=== PATIENT | male | born 1965 | race Caucasian/White ===

== ENCOUNTER 2018-02-06 02:22 | Inpatient (IN) | payer MEDICAID ==
[~2018-02-06] VITALS: Ht 190.5 cm; Wt 90.7 kg
--- NOTE | 2018-02-06 02:27 | NUR ---
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 PT RECEIVED A BREATHING TREATMENT WITH 5MG ALBUTEROL IN FIELD EXPLORATION ENGINEER. BLOOD SUGAR IN FIELD 154. PT NOTED TO BE IN MILD RESPIRATORY DISTRESS, EXPIRATORY WHEEZING NOTED. PT'S SKIN IS HOT TO TOUCH AND PT NOTED TO BE PALE AND DIAPHORETIC. PT IS AAOX4. 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 PT PLACED ON CARDAIC MONITOR AND POX. PT SAFETY AND COMFORT MEASURES IN PLACE. PER MD''S ORDERS, PT PLACED ON NC 3L/M. MD BEDSIDE FOR EVAL.
--- NOTE | 2018-02-06 02:30 | NUR ---
NEUTROPENIC PRECAUTIONS IN PLACE. PT WEARING SURGICAL MASK CUTTER GRINDER.
[2018-02-06] MEDS ORDERED: ACETAMINOPHEN ES 500 MG TABLET ONE (02:50)
[2018-02-06 02:58] LABS: APPEARANCE,URINE CLEAR (CLEAR); BILIRUBIN,URINE NEGATIVE (NEGATIVE); BLOOD, URINE TRACE Ery/uL (NEGATIVE); COLOR,URINE YELLOW (YELLOW); KETONES,URINE NEGATIVE (NEGATIVE); LEUKOCYTE ESTERASE ,URINE NEGATIVE (NEGATIVE); NITRITE, URINE NEGATIVE (NEGATIVE); PROTEIN,URINE 1+ mg/dl (NEGATIVE); UGLUCOSE NEGATIVE (NEGATIVE)
[2018-02-06] MEDS ORDERED: IV NS 0.9% 500 ML BAG IV ONE (03:00)
[2018-02-06] MEDS ORDERED: ACETAMINOPHEN ES 500 MG TABLET PO ONE (03:00)
[2018-02-06 03:08] LABS: INR 1.12 (0.87-1.13)
[2018-02-06 03:13] LABS: ALANINE AMINOTRANSFERASE 39 U/L (12-78); ALBUMIN 2.5 g/dL (3.4-5.0); ALKALINE PHOSPHATASE 30 U/L (46-116); ASPARTATE AMINOTRANSFERASE 21 U/L (15-37); BILIRUBIN,DIRECT 0.7 mg/dL (0.0-0.2); BILIRUBIN,TOTAL 2.4 mg/dL (0.2-1.0); CALCIUM, SERUM 7.6 mg/dL (8.5-10.1); CARBON DIOXIDE 23 mmol/L (21-32); CHLORIDE 98 mmol/L (98-107); CREATININE 1.3 mg/dL (0.6-1.3); GLUCOSE 122 mg/dL (74-106); POTASSIUM 3.9 mmol/L (3.5-5.1); SODIUM SERUM 132 mmol/L (136-145); TOTAL PROTEIN, SERUM 6.6 g/dL (6.4-8.2); UREA NITROGEN, BLOOD 26 mg/dL (7-18)
[2018-02-06 03:14] LABS: TROPONIN I < 0.017 ng/mL (0.00-0.056)
--- NOTE | 2018-02-06 03:30 | NUR ---
PT TO VQ SCAN.
[2018-02-06 03:31] LABS: HEMATOCRIT 19 % (39-51); HEMOGLOBIN 6.5 g/dL (13.5-17.5); LYMPHOCYTES # (AUTO) 0.1 /CMM (0.8-4.8); LYMPHOCYTES % (AUTO) 63.4 % (20.0-44.0); MEAN CORPUSCULAR HGB CONC 34 g/dl (31.0-36.0); MEAN CORPUSCULAR VOLUME 93 fL (80-96); MONOCYTES # (AUTO) 0.1 /CMM (0.1-1.30); MONOCYTES % (AUTO) 27.9 % (2.0-12.0); NEUTROPHILS % (AUTO) 8.7 % (43.0-81.0); RED BLOOD CELL COUNT(AUTO) 2.05 MIL/uL (4.5-6.0); WHITE BLOOD COUNT (AUTO) 0.2 K/uL (4.3-11.0)
[2018-02-06 03:32] LABS: PLATELET COUNT (AUTO) 21 /CMM (150-450)
[2018-02-06 03:35] LABS: RBC,URINE 0-2 /HPF (0-2)
[2018-02-06 03:36] LABS: BACTERIA,URINE None seen /HPF (None Seen); SQUAMOUS EPITHELIAL CELL,UR Rare /HPF (None Seen); WBC,URINE NONE SEEN /HPF (0-3)
--- NOTE | 2018-02-06 04:15 | NUR ---
PT BACK FROM VQ SCAN
--- NOTE | 2018-02-06 04:22 | NUR ---
NM: LUNG V/Q WAS COMPLETED. TECH:RB.
--- NOTE | 2018-02-06 04:54 | NUR ---
BLOOD TRANSFUSSION INITIATED. BLOOD PRODUCTS AND BLOOD TRANSFUSSION VERIFIED BY ALLEN HOSKINS.
[2018-02-06] MEDS ORDERED: IBUPROFEN 400 MG TABLET ONE (04:58)
[2018-02-06] MEDS ORDERED: IBUPROFEN 800 MG TABLET PO PRN (05:00)
--- NOTE | 2018-02-06 05:01 | NUR ---
PT MEDICATED PER MD'S ORDERS
[2018-02-06] MEDS ORDERED: PIPERACILLIN /TAZOBACTAM 3.375 G in IV D5W 50 ML IV STA (05:05)
[2018-02-06] MEDS ORDERED: VANCOMYCIN 1 GM in IV NS 0.9% 250 ML IV STA (05:05)
[2018-02-06] MEDS ORDERED: PIPERACILLIN /TAZOBACTAM 3.375 G VIAL IV ONE ×2 (05:59→06:05)
[2018-02-06] MEDS ORDERED: VANCOMYCIN 1 GM VIAL ONE (06:00)
--- NOTE | 2018-02-06 06:05 | NUR ---
PT MEDICATED PER MD'S ORDERS
--- NOTE | 2018-02-06 06:06 | NUR ---
PT REPORT WAS GIVEN TO HUDSON VILLA ROOM WAS CHANGED TO ROOM 314-2 PER 3RD FLOOR
[2018-02-06] MEDS ORDERED: IV NS 0.9% 1,000 ML IV PRN (06:20)
[2018-02-06] MEDS ORDERED: ZOLPIDEM TARTRATE 5 MG TABLET PO PRN (06:30)
[2018-02-06] MEDS ORDERED: Z GUARD REMEDY 2 OZ OINT TP PRN (06:30)
[2018-02-06] MEDS ORDERED: HYDROCODONE/APAP 5/325MG 1 EACH TABLET PO PRN (06:30)
[2018-02-06] MEDS ORDERED: MAGNESIUM HYDROXIDE 30 ML UDC PO PRN (06:30)
[2018-02-06] MEDS ORDERED: MAG HYDROX/AL HYDROX/SIMETH 30 ML UDC PO PRN (06:30)
[2018-02-06] MEDS ORDERED: FLUCONAZOLE IN NS 100 MG in PREMIX 1 EA IV SCH ×2 (06:30)
[2018-02-06] MEDS ORDERED: ONDANSETRON HCL/PF 4 MG/2 ML VIAL IVP PRN (06:30)
[2018-02-06] MEDS ORDERED: HYDROCODONE/APAP 10/325MG 1 EA TABLET PO PRN (06:30)
[2018-02-06] MEDS ORDERED: VANCOMYCIN 1 GM in IV NS 0.9% 250 ML IV ONE (07:00)
[2018-02-06] MEDS ORDERED: FEE PK DOSING 1 MIN EA MC ONE (07:03)
[2018-02-06] MEDS: IPRATROPIUM NEB FS 0.5 MG/2.5 ML AMPUL.NEB NEB SCH ×3 (07:29→15:45)
--- NOTE | 2018-02-06 07:58 | NUR ---
REPORT GIVEN TO DANI VILLA FOR CONTINUITY OF CARE IN [facility]
[2018-02-06 08:00] VITALS: BP 94/52
[2018-02-06] MEDS ORDERED: RITU10VI IV (08:00)
[2018-02-06] MEDS ORDERED: [UNRECOGNIZED DRUG - CODE] IV (08:00)
[2018-02-06] MEDS ORDERED: ACYC400T PO (08:00)
--- NOTE | 2018-02-06 08:00 | NUR ---
[facility] RN NOTES RECEIVED PT IN ROOM 110 FROM ER, REPORT WAS GIVEN BY BEBETO HANSON RN, TRANSPORTED VIA GURNEY, PT WEARING A FACE MASK DUE TO LOW WBC=0.2, PT PLACED IN REVERSE ISOLATION(NEUTROPENIC PRECAUTION), PT IS ALERT AND ORIENTEDX4, AFEBRILE WITH TEMP OF 98.1, NO C/O PAIN, NO BLEEDING NOTED ON IV LINE, PLACED ON CARDIAC MONITORING WITH SINUS TACH, NV=547, LEFT AC 18G IV LINE NOTED INTACT AND PATENT, COMPLETE BODY ASSESSMENT DONE, BED IN LOWEST POSITION AND LOCKED AT ALL TIMES, CALL LIGHT WITHIN REACH, NEEDS ANTICIPATED, INFORMED DR. MARK ANTHONY WHITE RE: PT'S ADMISSION IN THE UNIT, AWAITING FOR ORDERS.
[2018-02-06 12:00] VITALS: BP 100/49
[2018-02-06] MEDS: ACETAMINOPHEN 325 MG TABLET PO PRN ×3 (13:00→21:20)
[2018-02-06] MEDS: MEROPENEM 1 G in IV NS 0.9% 100 ML IV SCH ×2 (13:38→21:12)
[2018-02-06] MEDS ORDERED: VANCOMYCIN 1 GM in IV D5W 250 ML IV SCH (14:00)
[2018-02-06] MEDS: ALBUTEROL FS 2.5 MG/3 ML VIAL.NEB NEB PRN ×2 (14:13→15:45)
[2018-02-06] MEDS ORDERED: FILGRASTIM (480 MCG) 480 MCG/1.6 ML VIAL SQ SCH (15:00)
--- NOTE | 2018-02-06 15:13 | NUR ---
[facility] RN NOTES NOTED PT. HAVING CHILLS AND DIAPHORESIS PROFUSELY, BODY TEMP OF 100.4, PT C/O SOB, O2 SAT AT 92% AND CLAIMS THAT HE IS HAVING DIFFICULTY BREATHING, CALLED RT AND RT ADMINISTERED BREATHING TREATMENT, CALLED AND PAGE DR. TORRES REGARDING PT'S TEMP, MADE HIM AWARE THAT TYLENOL WAS JUST GIVEN 1300 FOR MILD PAIN, PER MD OK TO GIVE ANOTHER DOSE OF TYLENOL 650 MG PO NOW FOR TEMP
[2018-02-06] MEDS ORDERED: DOCU100C36 PO (15:44)
[2018-02-06] MEDS ORDERED: SENN-167 PO (15:44)
[2018-02-06] MEDS ORDERED: POLY17PO4 PO (15:46)
[2018-02-06] MEDS: FLUCONAZOLE IN NS 100 MG in PREMIX 1 EA IV SCH ×2 (15:47)
[2018-02-06 16:00] VITALS: BP 146/71
--- NOTE | 2018-02-06 16:30 | NUR ---
[facility] RN NOTES OFFERED PT COOLING MEASURES, OFFERED X3 AND EXPLAINED BENEFITS, RESIDENT STRONGLY REFUSED. RESPECTED RESIDENT RIGHTS, WILL KEEP MONITORING.
[2018-02-06] MEDS: LACTOBACILLUS RHAMNOSUS GG 1 EACH CAP.SPRINK PO SCH (16:49)
[2018-02-06] MEDS: SENNOSIDES 8.6 MG TABLET PO SCH (16:49)
[2018-02-06] MEDS: DOCUSATE SODIUM 100 MG CAPSULE PO SCH (16:49)
[2018-02-06] MEDS: VANCOMYCIN 1.25 GM in IV D5W 500 ML IV SCH (16:51)
[2018-02-06] MEDS: POLYETHYLENE GLYCOL 3350 17 GM POWD.PACK PO SCH (16:52)
[2018-02-06] MEDS ORDERED: TBO-FILGRASTIM 480 MCG/0.8 ML ML SQ SCH (17:00)
--- NOTE | 2018-02-06 17:39 | NUR ---
[facility] RN NOTES RECEIVED CRITICALVALUE FOR PROCALCITONIN 5.8, PAGED DR. TORRES AND AWAITING FOR MDS REPLY.
--- NOTE | 2018-02-06 18:28 | NUR ---
[facility] RN NOTE: CALLED AND INFORMED DR. TORRES RE: THE PATIENT'S REQUEST TO DC HIS NORCO. HE VERBALIZED, "I DO NOT LIKE NORCO. I CAN TAKE TYLENOL." WITH ORDER, NOTED AND CARRIED OUT.
--- NOTE | 2018-02-06 19:30 | NUR ---
[facility] RN NOTES PT IN BED, RESTING COMFORTABLY, NO C/O PAIN AND SOB AT THIS TIME, TEMP OF 99.1, STILL ON 3L/MIN O2 VIA NC, O2 SAT OF 99%, NO DIAPHORESIS NOTED, NO SIGNS OF BLEEDING NOTED, STILL WAITING ORDER FROM DR. TORRES REGARDING PROCALCITONIN OF 5.8, WILL ENDORSE TO MAJOR GIFTS DIRECTOR NURSE
--- NOTE | 2018-02-06 19:35 | NUR ---
[facility] RN NOTES PT IN BED, RESTING COMFORTABLY, NO C/O PAIN AND SOB AT THIS TIME, TEMP OF 99.1, STILL ON 3L/MIN O2 VIA NC, O2 SAT OF 99%, NO DIAPHORESIS NOTED, NO SIGNS OF BLEEDING NOTED, STILL WAITING ORDER FROM DR. TORRES REGARDING PROCALCITONIN OF 5.8, WILL ENDORSE TO SUPERVISORY CLERK NURSE ADDENDUM OFFERED COOLING MEASURES, EXPLAINED BENEFITS, PT REFUSED
--- NOTE | 2018-02-06 20:00 | NUR ---
RN INITIAL NOTES RECEIVED PT IN BED, RESTING COMFORTABLY, NO C/O PAIN AND SOB AT THIS TIME, TEMP OF 99.0, PT ON 3L/MIN O2 VIA NC, O2 SAT OF 99%, NO DIAPHORESIS NOTED, NO SIGNS OF BLEEDING NOTED, ALL SAFETY PRECAUTIONS TAKEN. WILL ENDORSE TO AM SHIFT NURSE
[2018-02-06] MEDS: ACYCLOVIR 200 MG CAPSULE PO SCH (21:13)
[2018-02-07] VITALS (10 sets, daily range): BP systolic 97–124; BP diastolic 53–70
[2018-02-07] MEDS: IPRATROPIUM NEB FS 0.5 MG/2.5 ML AMPUL.NEB NEB SCH ×4 (00:58→20:20)
[2018-02-07] MEDS: VANCOMYCIN 1.25 GM in IV D5W 500 ML IV SCH (05:01)
[2018-02-07] MEDS: MEROPENEM 1 G in IV NS 0.9% 100 ML IV SCH ×3 (05:04→20:44)
[2018-02-07] MEDS: ACETAMINOPHEN 325 MG TABLET PO PRN ×2 (05:11→12:26)
[2018-02-07 06:44] LABS: EOSINOPHILS % (AUTO) 3.6 % (0.0-6.0); LYMPHOCYTES # (AUTO) 0.2 /CMM (0.8-4.8); LYMPHOCYTES % (AUTO) 65.7 % (20.0-44.0); MEAN CORPUSCULAR HGB CONC 36 g/dl (31.0-36.0); MEAN CORPUSCULAR VOLUME 92 fL (80-96); MONOCYTES % (AUTO) 5.2 % (2.0-12.0); NEUTROPHILS # (AUTO) 0.1 /CMM (1.8-8.9); NEUTROPHILS % (AUTO) 25.5 % (43.0-81.0); RDW COEFFICIENT OF VARIATION 21.7 (11.5-15.0)
--- NOTE | 2018-02-07 06:59 | NUR ---
RN CLOSING NOTES NO SIGNIFICANT CHANGE IN PT CONDITION OVER NIGHT.
--- NOTE | 2018-02-07 07:00 | NUR ---
RN OPENING NOTE RECEIVED PT IN BED, RESTING COMFORTABLY, NO C/O PAIN AND SOB AT THIS TIME, PATIENT IS ON MONITOR WITH SINUS RHYTHM OF 82, PT ON 3L/MIN O2 VIA NC, NO DIAPHORESIS NOTED, NO SIGNS OF BLEEDING NOTED, ALL SAFETY PRECAUTIONS TAKEN.BED LOCKED IN LOW POSITION .CALL LIGHT IN REACH.CONTINUE TO MONITOR.
[2018-02-07 07:01] LABS: THYROID STIMULATING HORMONE 2.875 uIU/mL (0.358-3.74)
[2018-02-07 07:19] LABS: CALCIUM, SERUM 7.2 mg/dL (8.5-10.1); PHOSPHORUS 3.3 mg/dL (2.5-4.9); POTASSIUM 4.7 mmol/L (3.5-5.1)
[2018-02-07 07:44] LABS: RED BLOOD CELL COUNT(AUTO) 1.75 MIL/uL (4.5-6.0)
[2018-02-07 07:47] LABS: HEMATOCRIT 16 % (39-51); HEMOGLOBIN 5.8 g/dL (13.5-17.5); PLATELET COUNT (AUTO) 19 /CMM (150-450); WHITE BLOOD COUNT (AUTO) 0.3 K/uL (4.3-11.0)
--- NOTE | 2018-02-07 08:30 | NUR ---
RN NOTES CALL MADE TO DR TORRES,MADE AWARE THAT THE LAB VALUES AND LOW H/H OF 5.8AND 16.HE REPLIED HE KNOW ABOUT IT.WILL CONTINUE TO MONITOR.
[2018-02-07] MEDS: LACTOBACILLUS RHAMNOSUS GG 1 EACH CAP.SPRINK PO SCH ×2 (08:35→18:05)
[2018-02-07] MEDS: DOCUSATE SODIUM 100 MG CAPSULE PO SCH ×2 (08:36→18:05)
[2018-02-07] MEDS: SENNOSIDES 8.6 MG TABLET PO SCH ×2 (08:36→18:04)
[2018-02-07] MEDS: POLYETHYLENE GLYCOL 3350 17 GM POWD.PACK PO SCH (08:36)
[2018-02-07] MEDS: ACYCLOVIR 200 MG CAPSULE PO SCH ×2 (08:36→20:44)
--- NOTE | 2018-02-07 09:30 | NUR ---
RN NOTES SEEN BY ,NOTIFIED ABOUT THE LOW H/H.NO BLOOD TRANSFUSION NOW.CONTINUE TO MONITOR.
--- NOTE | 2018-02-07 15:00 | NUR ---
RN NOTES PATIENT COMPLAINTS OF PAIN AT ANAL AREA AFTER BOWEL MOVEMENT .LEFT MESSAGE TO DR TORRES FOR CREAM TO APPLY HEMORRHOID SITE.HE SAID HE WILL DO IT.
[2018-02-07] MEDS: FLUCONAZOLE IN NS 100 MG in PREMIX 1 EA IV SCH ×2 (15:30)
[2018-02-07] MEDS ORDERED: diphenhydrAMINE HCL 50 MG/ML VIAL IV ONE (16:00)
[2018-02-07] MEDS ORDERED: HYDROCORTISONE CR 30 GM TUBE RC PRN (16:00)
[2018-02-07] MEDS ORDERED: ACETAMINOPHEN 325 MG TABLET PO ONE (16:00)
[2018-02-07] MEDS ORDERED: VANCOMYCIN 1.25 GM in IV D5W 500 ML IV SCH (17:00)
--- NOTE | 2018-02-07 18:00 | NUR ---
RN NOTES GOT AN ORDER FOR BLOOD TRANSFUSION.PATIENT MADE AWARE.
--- NOTE | 2018-02-07 18:30 | NUR ---
RN NOTES SEEN BY DOCTOR TUNG ONCOLOGY,AWARE ABOUT POSITIVE BLOOD CULTURE OF GRAM NEGATIVE RODS,SHE SAID MEROPENEM WILL COVER IT,WILL WAIT FOR FIANL RESULT FOR CULTURE AND SENSITIVITY.
--- NOTE | 2018-02-07 19:10 | NUR ---
RN CLOSING NOTE RECEIVED PT IN BED, RESTING COMFORTABLY, NO C/O PAIN AND SOB AT THIS TIME, PATIENT IS ON MONITOR WITH SINUS RHYTHM OF 86 , PT ON 3L/MIN O2 VIA NC, NO DIAPHORESIS NOTED, NO SIGNS OF BLEEDING NOTED,BLOOD TRANSFUSION GOING ON FIRST BAG OF PRBC.NO REACTIONS NOTED.VITAL SIGNS STABLE. ALL SAFETY PRECAUTIONS TAKEN.BED LOCKED IN LOW POSITION .CALL LIGHT IN REACH.WILL ENDORSE TO PM NURSE FOR MINDY.
--- NOTE | 2018-02-07 23:09 | NUR ---
ASSISTANT BUSINESS MANAGER; BEDSIDE REPORT GIVEN TO KELLI/RN, BLOOD TRANSFUSION ONGOING, V/S STABLE. PT IS AAOX 4. TOLERATING TRANSFUSION. NO DISTRESS.
[2018-02-08] VITALS: BP 111/63
[2018-02-08] MEDS: ACETAMINOPHEN 325 MG TABLET PO PRN (00:54)
[2018-02-08] MEDS: IPRATROPIUM NEB FS 0.5 MG/2.5 ML AMPUL.NEB NEB SCH ×4 (01:30→19:30)
[2018-02-08 04:23] VITALS: BP 123/65
[2018-02-08] MEDS: MEROPENEM 1 G in IV NS 0.9% 100 ML IV SCH ×2 (04:35→12:44)
--- NOTE | 2018-02-08 06:17 | NUR ---
assumed care @2315, pt alert,oriented,c/o pain from the hemorrhoids,completed 2 units of prbc overnight without any adverse effects,vss,afebrile, continue with antibiotics.neutropenic isolation observed.
[2018-02-08 06:43] LABS: CALCIUM, SERUM 7.6 mg/dL (8.5-10.1); POTASSIUM 3.8 mmol/L (3.5-5.1)
--- NOTE | 2018-02-08 07:35 | NUR ---
RN OPENING NOTES RECEIVED PATIENT IN BED RESTING, A/OX4. NO ACUTE DISTRESS, NO SOB, DENIED PAIN OR DISCOMFORT AT THIS TIME. IV SITE INTACT AND PATENT. KEPT PATIENT SAFE AND COMFORTABLE. BED IN LOW/LOCKED POSITION, SIDERAILS UPX2, CALL LIGHT IN REACH. WILL CONTINUE TO MONITOR ACCORDINGLY.
[2018-02-08 08:00] VITALS: BP 111/62
[2018-02-08] MEDS: POLYETHYLENE GLYCOL 3350 17 GM POWD.PACK PO SCH (09:16)
[2018-02-08] MEDS: LACTOBACILLUS RHAMNOSUS GG 1 EACH CAP.SPRINK PO SCH ×2 (09:17→16:48)
[2018-02-08] MEDS: SENNOSIDES 8.6 MG TABLET PO SCH ×2 (09:17→16:49)
[2018-02-08] MEDS: ACYCLOVIR 200 MG CAPSULE PO SCH ×2 (09:17→21:26)
[2018-02-08] MEDS: DOCUSATE SODIUM 100 MG CAPSULE PO SCH ×2 (09:17→16:49)
[2018-02-08 14:27] LABS: BILIRUBIN,DIRECT 0.5 mg/dL (0.0-0.2); BILIRUBIN,TOTAL 1.6 mg/dL (0.2-1.0); TOTAL PROTEIN, SERUM 5.9 g/dL (6.4-8.2)
[2018-02-08 15:24] LABS: HEMATOCRIT 27 % (39-51); HEMOGLOBIN 9.3 g/dL (13.5-17.5); LYMPHOCYTES # (AUTO) 0.5 /CMM (0.8-4.8); LYMPHOCYTES % (AUTO) 83.5 % (20.0-44.0); MEAN CORPUSCULAR HGB CONC 35 g/dl (31.0-36.0); MEAN CORPUSCULAR VOLUME 90 fL (80-96); MONOCYTES % (AUTO) 8.1 % (2.0-12.0); NEUTROPHILS % (AUTO) 8.4 % (43.0-81.0); RDW COEFFICIENT OF VARIATION 20.6 (11.5-15.0); RED BLOOD CELL COUNT(AUTO) 2.97 MIL/uL (4.5-6.0)
--- NOTE | 2018-02-08 15:53 | NUR ---
RN NOTES NOTIFIED PATRICE PENALOZA NP OF PATIENT'S WBC=0.6 AND PLATELET=17. NO NEW ORDERS NOTED.
[2018-02-08 15:54] LABS: PLATELET COUNT (AUTO) 17 /CMM (150-450); WHITE BLOOD COUNT (AUTO) 0.6 K/uL (4.3-11.0)
[2018-02-08 16:00] VITALS: BP 106/69
[2018-02-08 16:00] LABS: LYMPHOCYTES % (MANUAL) 80 % (16-48); MONOCYTES % (MANUAL) 16 % (0-11.0); NEUTROPHILS % (MANUAL) 4 (42-76)
[2018-02-08] MEDS: IV NS 0.9% 1,000 ML IV PRN (16:47)
[2018-02-08] MEDS: FLUCONAZOLE IN NS 100 MG in PREMIX 1 EA IV SCH ×2 (16:48)
--- NOTE | 2018-02-08 18:00 | NUR ---
RN NOTES PATIENT IS SCHEDULED FOR CT CHEST AND ABDOMEN/PELVIS WITH CONTRAST AT 2100 PER RADIOLOGIST. CONSENT SIGNED.
--- NOTE | 2018-02-08 19:20 | NUR ---
RN CLOSING NOTES PATIENT IN STABLE CONDITION. ALL NEEDS ATTENDED AND PROVIDED. KEPT PATIENT SAFE AND COMFORTABLE. BED IN LOW/LOCKED POSITION, SIDERAILS UPX2, CALL LIGHT IN REACH. ENDORSED TO NIGHT RN FOR MINDY.
[2018-02-08 20:00] VITALS: BP 122/77
[2018-02-08] MEDS ORDERED: IOHEXOL-300 100 ML VIAL IV ONE (20:54)
--- NOTE | 2018-02-08 20:55 | NUR ---
MS-1/ARPIT PT OFF THE FLOOR TO CT SCAN.
--- NOTE | 2018-02-08 21:15 | NUR ---
MS-1/TUB WASH OPERATOR PT BACK FROM CT. WILL CONTINUE TO MONITOR.
[2018-02-08] MEDS: CEFTRIAXONE 2 G in IV NS 0.9% 100 ML IV SCH (21:36)
[2018-02-09] MEDS: IPRATROPIUM NEB FS 0.5 MG/2.5 ML AMPUL.NEB NEB SCH ×4 (01:30→19:30)
[2018-02-09 04:00] VITALS: BP 119/76
[2018-02-09 06:33] LABS: CALCIUM, SERUM 7.3 mg/dL (8.5-10.1); CREATININE 0.8 mg/dL (0.6-1.3); POTASSIUM 3.9 mmol/L (3.5-5.1)
[2018-02-09 06:35] LABS: HEMATOCRIT 22 % (39-51); HEMOGLOBIN 7.8 g/dL (13.5-17.5); LYMPHOCYTES # (AUTO) 0.3 /CMM (0.8-4.8); LYMPHOCYTES % (AUTO) 78.9 % (20.0-44.0); MEAN CORPUSCULAR HGB CONC 35 g/dl (31.0-36.0); MEAN CORPUSCULAR VOLUME 90 fL (80-96); MONOCYTES # (AUTO) 0.1 /CMM (0.1-1.30); MONOCYTES % (AUTO) 12.8 % (2.0-12.0); NEUTROPHILS % (AUTO) 8.3 % (43.0-81.0); RDW COEFFICIENT OF VARIATION 20.3 (11.5-15.0); RED BLOOD CELL COUNT(AUTO) 2.49 MIL/uL (4.5-6.0)
[2018-02-09 07:35] LABS: PLATELET COUNT (AUTO) 15 /CMM (150-450); WHITE BLOOD COUNT (AUTO) 0.4 K/uL (4.3-11.0)
--- NOTE | 2018-02-09 07:38 | NUR ---
RN OPENING NOTES RECEIVED PATIENT IN BED RESTING,EASILY AROUSABLE DURING CARE A/OX4. NO ACUTE DISTRESS, NO SOB, DENIED PAIN OR DISCOMFORT AT THIS TIME. IV SITE INTACT AND PATENT, NO REDNESS OR INFILTRATION NOTED. KEPT PATIENT CLEAN, SAFE AND COMFORTABLE. BED IN LOW/LOCKED POSITION, SIDERAILS UPX2, CALL LIGHT IN REACH. WILL CONTINUE TO MONITOR .
[2018-02-09 08:00] VITALS: BP 120/66
[2018-02-09] MEDS: SENNOSIDES 8.6 MG TABLET PO SCH ×2 (08:32→16:45)
[2018-02-09] MEDS: DOCUSATE SODIUM 100 MG CAPSULE PO SCH ×2 (08:33→16:44)
[2018-02-09] MEDS: POLYETHYLENE GLYCOL 3350 17 GM POWD.PACK PO SCH (08:33)
[2018-02-09] MEDS: ACYCLOVIR 200 MG CAPSULE PO SCH ×2 (08:33→21:52)
[2018-02-09] MEDS: LACTOBACILLUS RHAMNOSUS GG 1 EACH CAP.SPRINK PO SCH ×2 (08:33→16:45)
[2018-02-09] MEDS: IV NS 0.9% 1,000 ML IV PRN (11:22)
[2018-02-09] MEDS ORDERED: PHENYLEPHRINE/SHK LV/MO/PET,WH 30 GM TUBE RC PRN (12:30)
[2018-02-09] MEDS: FLUCONAZOLE (100 MG) 100 MG TABLET PO SCH (12:58)
--- NOTE | 2018-02-09 13:00 | NUR ---
RN NOTES NOTED PT WITH ORDERS FOR STOOL FOR OB, PT WITH BM FRAMING CONSULTANT PENALOZA IN RM PER FRAMING CONSULTANT NO NEED TO COLLECT STOOL, NO BLOOD IN STOOL WILL CONTINUE TO MONITOR
[2018-02-09 16:00] VITALS: BP 129/71
[2018-02-09 18:27] LABS: HEMOGLOBIN 8.7 g/dL (13.5-17.5)
--- NOTE | 2018-02-09 19:36 | NUR ---
SLEEVE MACHINE TENDER NOTES PATIENT IN BED RESTING COMFORTABLY, A/OX4. NO ACUTE DISTRESS, NO SOB, DENIES ANY PAIN OR DISCOMFORT AT THIS TIME. IV SITE INTACT AND PATENT, NO REDNESS OR INFILTRATION NOTED. KEPT PATIENT CLEAN, SAFE AND COMFORTABLE. NO ACUTE CHANGE IN CONDITION THROUGHOUT SHIFT.BED IN LOW/LOCKED POSITION, SIDERAILS UPX2, CALL LIGHT IN REACH. ENDORSED TO NEXT SHIFT FOR CONTINUITY OF CARE . Addendum: 02/09/18 at 1939 by CHOLO HAWTHORNE RN CORRECTION OF ENTRY RN CLOSING NOTES
[2018-02-09 20:00] VITALS: BP 141/73
--- NOTE | 2018-02-09 20:00 | NUR ---
RN INITIAL NOTES RECEIVED PATIENT IN BED RESTING, A/OX4. NO ACUTE DISTRESS, NO SOB, DENIED PAIN OR DISCOMFORT AT THIS TIME. IV SITE INTACT AND PATENT, NO REDNESS OR INFILTRATION NOTED. KEPT PATIENT CLEAN, SAFE AND COMFORTABLE. BED IN LOW/LOCKED POSITION, SIDE RAILS UPX2, CALL LIGHT IN REACH. WILL CONTINUE TO MONITOR .
[2018-02-09] MEDS: CEFTRIAXONE 2 G in IV NS 0.9% 100 ML IV SCH (21:52)
[2018-02-10] VITALS: BP 141/73
[2018-02-10] MEDS: IPRATROPIUM NEB FS 0.5 MG/2.5 ML AMPUL.NEB NEB SCH ×4 (01:30→19:30)
[2018-02-10 06:00] VITALS: BP 134/71
--- NOTE | 2018-02-10 06:33 | NUR ---
RN CLOSING NOTES PATIENT IN STABLE CONDITION. ALL NEEDS ATTENDED AND PROVIDED. KEPT PATIENT SAFE AND COMFORTABLE. BED IN LOW/LOCKED POSITION, SIDERAILS UPX2, CALL LIGHT IN REACH. ENDORSED TO AM RN FOR MINDY.
[2018-02-10 06:59] LABS: BASOPHILS % (AUTO) 0.2 % (0.0-2.0); EOSINOPHILS % (AUTO) 0.2 % (0.0-6.0); HEMATOCRIT 23 % (39-51); HEMOGLOBIN 8.2 g/dL (13.5-17.5); LYMPHOCYTES # (AUTO) 0.4 /CMM (0.8-4.8); LYMPHOCYTES % (AUTO) 87.6 % (20.0-44.0); MEAN CORPUSCULAR HGB CONC 35 g/dl (31.0-36.0); MEAN CORPUSCULAR VOLUME 89 fL (80-96); MONOCYTES % (AUTO) 2.1 % (2.0-12.0); NEUTROPHILS % (AUTO) 9.9 % (43.0-81.0); RDW COEFFICIENT OF VARIATION 19.8 (11.5-15.0); RED BLOOD CELL COUNT(AUTO) 2.62 MIL/uL (4.5-6.0)
[2018-02-10 07:09] LABS: CALCIUM, SERUM 7.8 mg/dL (8.5-10.1); CREATININE 0.8 mg/dL (0.6-1.3); POTASSIUM 4.2 mmol/L (3.5-5.1)
[2018-02-10 07:32] LABS: PLATELET COUNT (AUTO) 18 /CMM (150-450); WHITE BLOOD COUNT (AUTO) 0.5 K/uL (4.3-11.0)
--- NOTE | 2018-02-10 07:46 | NUR ---
PT REFUSED HHN TX AT THIS TIME. NO SOB/RESP DISTRESS NOTED. PT STATES HE WILL CALL FOR PRN TX IF NEEDED. RN INFORMED. WILL CONTINUE TO MONITOR PT.
[2018-02-10 08:35] VITALS: BP 114/69
[2018-02-10 08:59] VITALS: BP 114/69
[2018-02-10] MEDS: POLYETHYLENE GLYCOL 3350 17 GM POWD.PACK PO SCH (08:59)
[2018-02-10] MEDS: ACYCLOVIR 200 MG CAPSULE PO SCH ×2 (09:00→20:05)
[2018-02-10] MEDS: SENNOSIDES 8.6 MG TABLET PO SCH ×2 (09:00→16:30)
[2018-02-10] MEDS: LACTOBACILLUS RHAMNOSUS GG 1 EACH CAP.SPRINK PO SCH ×2 (09:01→16:30)
[2018-02-10] MEDS: FLUCONAZOLE (100 MG) 100 MG TABLET PO SCH (09:01)
[2018-02-10] MEDS: DOCUSATE SODIUM 100 MG CAPSULE PO SCH ×2 (09:01→16:30)
[2018-02-10 10:11] LABS: LYMPHOCYTES % (MANUAL) 84 % (16-48); MONOCYTES % (MANUAL) 2 % (0-11.0); NEUTROPHILS % (MANUAL) 14 (42-76)
--- NOTE | 2018-02-10 11:29 | NUR ---
RN NOTES PT REFUSED IVF AT PRESENT TIME. WILL CONTINUE TO MONITOR , MD AWARE
--- NOTE | 2018-02-10 13:28 | NUR ---
PT REFUSED HHN TX AT THIS TIME. RN AWARE. WILL CONTINUE TO MONITOR PT.
[2018-02-10 16:00] VITALS: BP_SYST 108; BP_SYST 118; BP_DIAS 53; BP_DIAS 56
--- NOTE | 2018-02-10 19:25 | NUR ---
MS RN OPENING NOTES: RECEIVED PT IN BED AND IS UP AND ABOUT AT THIS TIME. PT HAS IV ON R HAND AND IS NOT CONNECTED TO FLUIDS AT THIS TIME. PT IS A/OX4. INSTRUCTED PT TO CALL FOR ASSISTANCE PRN. CALL LIGHT WITHIN PT'S REACH. BED KEPT IN LOW, LOCKED POSITION, AND SIDE RAILS X 2UP. WILL CONTINUE TO MONITOR PT.
[2018-02-10 20:00] VITALS: BP 126/78
[2018-02-10] MEDS: CEFTRIAXONE 2 G in IV NS 0.9% 100 ML IV SCH (20:05)
--- NOTE | 2018-02-10 20:35 | NUR ---
MS RN NOTES: PT DOES NOT WANT TO BE CONNECTED TO IV FLUIDS AT THIS MOMENT. PT IS SAYING HE IS STAYING HYDRATED AND DRINKING A LOT OF WATER. PT STATES THAT HE IS DRINKING A GALLON AND A HALF OF WATER THAT IS BROUGHT IN BY VISITOR EARLIER.
[2018-02-11] MEDS: IPRATROPIUM NEB FS 0.5 MG/2.5 ML AMPUL.NEB NEB SCH ×4 (01:18→19:30)
[2018-02-11 04:00] VITALS: BP 117/70
[2018-02-11] MEDS: IV NS 0.9% 1,000 ML IV PRN (05:08)
--- NOTE | 2018-02-11 06:08 | NUR ---
MS RN CLOSING NOTES: ALL NEEDS WERE ATTENDED AND ANTICIPATED FOR. PT IS LAYING IN BED AT THIS TIME. PT IS A/OX4. PT HAS 2 IVS AND ARE BOTH PATENT AND INTACT. ONE IN THE L AC AND ONE ON THE R HAND. PT DOES NOT WANT TO BE CONNECTED TO IV FLUIDS HE SAID HE IS DRINKING A LOT OF WATER AND STAYING HYDRATED. CALL LIGHT WITHIN PT'S REACH.BED KEPT IN LOW, LOCKED POSITION, AND SIDE RAILS X 2UP. WILL ENDORSE TO AM NURSE FOR MINDY.
[2018-02-11 06:54] LABS: EOSINOPHILS % (AUTO) 1.4 % (0.0-6.0); HEMATOCRIT 25 % (39-51); HEMOGLOBIN 8.7 g/dL (13.5-17.5); LYMPHOCYTES # (AUTO) 0.4 /CMM (0.8-4.8); LYMPHOCYTES % (AUTO) 78.9 % (20.0-44.0); MEAN CORPUSCULAR HGB CONC 36 g/dl (31.0-36.0); MEAN CORPUSCULAR VOLUME 88 fL (80-96); MONOCYTES % (AUTO) 9.5 % (2.0-12.0); NEUTROPHILS % (AUTO) 10.2 % (43.0-81.0); RDW COEFFICIENT OF VARIATION 19.6 (11.5-15.0); RED BLOOD CELL COUNT(AUTO) 2.78 MIL/uL (4.5-6.0)
[2018-02-11 06:56] LABS: CALCIUM, SERUM 7.7 mg/dL (8.5-10.1); CREATININE 0.9 mg/dL (0.6-1.3); POTASSIUM 4.2 mmol/L (3.5-5.1)
--- NOTE | 2018-02-11 07:07 | NUR ---
MS RN OPENING NOTE RECEIVED BEDSIDE SBAR REPORT ON THE PATIENT. PATIENT IS ON REVERSE ISOLATION. SIGN POSTED ON THE ENTRANCE TO THE ROOM. PATIENT IS A/O X4, AWAKE AND RESPONSIVE IN BED. BED IS LOCKED IN LOWEST POSITION, SIDE RAILS UP X2. PATIENT IS AMBULATORY, PRESENTS WITH STEADY GAIT. DENIES PAIN/DISCOMFORT AT THIS TIME. PATIENT REFUSES TO BE CONNECTED TO THE IV FLUIDS STATION " I AM DRINKING A LOT OF FLUIDS, I AM . RISKS AND BENEFITS DISCUSSED. PATIENT VERBALIZED UNDERSTANDING. ALL NEEDS ARE MET. CALL LIGHT WITHIN REACH. EDUCATED TO CALL FOR ASSISTANCE USING THE CALL LIGHT AND VERBALIZED UNDERSTANDING. WILL CONTINUE TO ASSESS/MONITOR THROUGHOUT THE SHIFT.
[2018-02-11 07:17] LABS: PLATELET COUNT (AUTO) 12 /CMM (150-450); WHITE BLOOD COUNT (AUTO) 0.5 K/uL (4.3-11.0)
--- NOTE | 2018-02-11 07:22 | NUR ---
RECEIVED A PHONE CALL FROM LAB REPORTING A CRITICAL LAB OF WBC 0.5 AND PLT 18. CHARGE NURSE MAY NOTIFIED. VALUES ARE TRENDING UP COMPARED AND THE DAY BEFORE. PATIENT DIAGNOSED WITH LEUKEMIA AND PANCYTOPENIA. WILL INFORM THE MD.
[2018-02-11 08:00] VITALS: BP 129/73
[2018-02-11] MEDS: ACYCLOVIR 200 MG CAPSULE PO SCH ×2 (09:01→21:07)
[2018-02-11] MEDS: LACTOBACILLUS RHAMNOSUS GG 1 EACH CAP.SPRINK PO SCH ×2 (09:02→17:38)
[2018-02-11] MEDS: FLUCONAZOLE (100 MG) 100 MG TABLET PO SCH (09:03)
[2018-02-11] MEDS: DOCUSATE SODIUM 100 MG CAPSULE PO SCH ×2 (09:03→17:39)
[2018-02-11] MEDS: SENNOSIDES 8.6 MG TABLET PO SCH ×2 (09:03→17:38)
[2018-02-11] MEDS: POLYETHYLENE GLYCOL 3350 17 GM POWD.PACK PO SCH (09:04)
[2018-02-11 10:00] LABS: LYMPHOCYTES % (MANUAL) 82 % (16-48); MONOCYTES % (MANUAL) 6 % (0-11.0); NEUTROPHILS % (MANUAL) 12 (42-76)
[2018-02-11 12:00] VITALS: BP 118/70
--- NOTE | 2018-02-11 12:05 | NUR ---
CALLED CASE MANAGEMENT. NO ANSWER. WILL ATTEMPT AGAIN. Radha PENALOZA CALLED DAMI THE FOOD SERVICE UTILITY WORKER TO COME SEE THE PATIENT.
--- NOTE | 2018-02-11 15:12 | NUR ---
CALLED DAMI PLANT ENGINEER TO COME SPEAK TO THE PATIENT. AWAITING.
--- NOTE | 2018-02-11 15:32 | NUR ---
CONTACTED DAMI THE BUY BOAT OPERATOR TO COME TALK TO THE PATIENT. DAMI STATED HE WILL BE HERE SHORTLY. AWAITING.
[2018-02-11 16:00] VITALS: BP 122/71
--- NOTE | 2018-02-11 17:24 | NUR ---
PATIENT STATED HE WANTS TO LEAVE AMA SINCE THE CASE MANAGEMENT HAS STILL NOT COME TALK TO THE PATIENT ABOUT THE TRANSFER PLANS.
--- NOTE | 2018-02-11 17:45 | NUR ---
CALLED CASE MANAGEMENT. SPOKE TO OC. PER OC LOMAX STEPPED OUT AND WILL BE BACK SOON. ASKED OC TO TELL DAMI TO COME TALK TO THE PATIENT. PATIENT ANXIOUSLY AWAITING.
--- NOTE | 2018-02-11 18:02 | NUR ---
DR ARANGO'S TRAVEL REGISTERED NURSE ONCOLOGY AT THE BEDSIDE. ASKED TO CALL CASE MANAGEMENT AGAIN. NO ONE ANSWERED.
--- NOTE | 2018-02-11 19:09 | NUR ---
MS RN CLOSING NOTE PATIENT IS ON REVERSE ISOLATION. SIGN POSTED ON THE ENTRANCE TO THE ROOM. PATIENT IS A/O X4, AWAKE AND RESPONSIVE IN BED. BED IS LOCKED IN LOWEST POSITION, SIDE RAILS UP X2. PATIENT IS AMBULATORY, PRESENTS WITH STEADY GAIT. DENIES PAIN/DISCOMFORT AT THIS TIME. ALL NEEDS ARE MET. CALL LIGHT WITHIN REACH. EDUCATED TO CALL FOR ASSISTANCE USING THE CALL LIGHT AND VERBALIZED UNDERSTANDING. WILL ENDORSE TO THE EDITOR FARM JOURNAL NURSE FOR MINDY.
--- NOTE | 2018-02-11 19:15 | NUR ---
RN OPENING NOTES RECEIVED PATIENT SITTING UP IN BED, WATCHING TV, NOTED WITH NO SOB, IN NO ACUTE DISTRESS AND DENIES PAIN. ALL PATIENT'S NEEDS ATTENDED TO AT THIS TIME. PLACED CALL LIGHT WITHIN EASY REACH. WILL CONTINUE TO MONITOR.
[2018-02-11 20:00] VITALS: BP 112/63
[2018-02-11] MEDS: CEFTRIAXONE 2 G in IV NS 0.9% 100 ML IV SCH (21:08)
--- NOTE | 2018-02-11 21:20 | NUR ---
Higher level of care referral faxed to [facility] [phone] for oncology services due to recent diagnoses of leukemia was on chemo at [facility] by Dr. Shasha Huddleston [phone]. [place] [facility] [place] Addendum: 02/11/18 at 2253 by MARTINE ROSA RN Amended: Links added.
[2018-02-12] VITALS: BP 115/70
[2018-02-12] MEDS: IPRATROPIUM NEB FS 0.5 MG/2.5 ML AMPUL.NEB NEB SCH ×3 (01:29→13:23)
[2018-02-12 06:36] LABS: EOSINOPHILS % (AUTO) 0.7 % (0.0-6.0); HEMATOCRIT 26 % (39-51); LYMPHOCYTES # (AUTO) 0.3 /CMM (0.8-4.8); LYMPHOCYTES % (AUTO) 81.7 % (20.0-44.0); MEAN CORPUSCULAR HGB CONC 35 g/dl (31.0-36.0); MEAN CORPUSCULAR VOLUME 88 fL (80-96); MONOCYTES % (AUTO) 4.9 % (2.0-12.0); NEUTROPHILS # (AUTO) 0.1 /CMM (1.8-8.9); NEUTROPHILS % (AUTO) 12.7 % (43.0-81.0); RDW COEFFICIENT OF VARIATION 18.5 (11.5-15.0); RED BLOOD CELL COUNT(AUTO) 2.89 MIL/uL (4.5-6.0)
--- NOTE | 2018-02-12 06:39 | NUR ---
RN CLOSING NOTES PATIENT IN BED, IN NO ACUTE DISTRESS, DENIES PAIN, BREATHING EVEN AND UNLABORED. PATIENT AWAITING FOR ARRANGEMENTS TO BE ABLE TO TRANSFER TO [facility]. ALL PATIENT'S NEEDS ATTENDED TO THROUGHOUT THE SHIFT. PLACED BE DIN LOW POSITION AND LOCKED IN PLACE. CALL LIGHT WITHIN EASY REACH. WILL ENDORSE TO AM SHIFT NURSE FOR CONTINUITY OF CARE.
[2018-02-12 06:54] LABS: PLATELET COUNT (AUTO) 15 /CMM (150-450); WHITE BLOOD COUNT (AUTO) 0.4 K/uL (4.3-11.0)
--- NOTE | 2018-02-12 07:38 | NUR ---
MS/RN OPENING NOTE PATIENT ALERT AND ORIENTED X4. DENIES SOB. RESPIRATION REGULAR AND UNLABORED. DENIES PAIN. RIGHT HAND G 24 AND LAC G 18 PATENT AND SALINE LOCKED. BED LOW AND LOCKED. SIDE RAILS UP X2. CALL LIGHT WITHIN REACH. WILL CONTINUE TO MONITOR.
[2018-02-12 08:00] VITALS: BP 113/64
[2018-02-12] MEDS: FLUCONAZOLE (100 MG) 100 MG TABLET PO SCH (08:50)
[2018-02-12] MEDS: DOCUSATE SODIUM 100 MG CAPSULE PO SCH (08:50)
[2018-02-12] MEDS: POLYETHYLENE GLYCOL 3350 17 GM POWD.PACK PO SCH (08:50)
[2018-02-12] MEDS: SENNOSIDES 8.6 MG TABLET PO SCH (08:50)
[2018-02-12] MEDS: LACTOBACILLUS RHAMNOSUS GG 1 EACH CAP.SPRINK PO SCH (08:50)
[2018-02-12] MEDS: ACYCLOVIR 200 MG CAPSULE PO SCH (08:50)
[2018-02-12] MEDS ORDERED: NEOMY SULF/BACITRAC ZN/POLY 15 GM TUBE TP SCH (11:30)
--- NOTE | 2018-02-12 11:30 | NUR ---
MS/RN NOTE 1130 LEFT GREAT TO TREATMENT PROVIDED AND THE PATIENT TOLERATED TREATMENT WELL.
--- NOTE | 2018-02-12 13:00 | NUR ---
MS/RN NOTE AFTER MULTIPLE ENCOURAGEMENTS AND EXPLANATIONS THE PATIENT AGREED TO HAVE HIS LEFT GREAT TOE PICTURE TO BE TAKEN. PICTURE TAKE. THE PATIENT REFUSED ANY MORE SKIN ASSESSMENT PICTURES TO BE TAKEN A PART OF DISCHARGE POLICY.
--- NOTE | 2018-02-12 15:30 | NUR ---
MS/RN CLOSING NOTE PATIENT ALERT AND ORIENTED X4. DENIES SOB. RESPIRATION REGULAR AND UNLABORED. DENIES PAIN. PATIENT REFUSED SKIN ASSESSMENT PICTURES UPON DISCHARGE DESPITE EXPLAINING RISKS AND BENEFITS. PATIENT LEAVING AMA. SIGNED AMA PAPER AND THE PAPER IS PLACED IN THE CHART. THE PATIENT WAS PROVIDED THE RISK OF GOING AMA AND WAS ENCOURAGED TO FOLLOW MD ORDERS, HOWEVER, THE PATIENT INSISTED LEAVING AMA. PATIENT WAS PICKED UP BY HIS FRIEND. PATIENT LEFT THE HOSPITAL IN STABLE CONDITION.
== END 2018-02-12 15:34 | disposition left against medical advice (07) | DRG 720 ==
LOC: ER 02:23 → TELE 04:41 → TELE-TD 06:59 → TELE1 02-08 00:03 → MEDSG1 02-08 10:45
PROC: 30233R1 Transfusion of Nonautologous Platelets into Peripheral Vein, Percutaneous Approach (ICD-10-PCS; principal; 2018-02-06)
PROC: 30233N1 Transfusion of Nonautologous Red Blood Cells into Peripheral Vein, Percutaneous Approach (ICD-10-PCS; principal; 2018-02-06)
DX: A41.51 Sepsis due to Escherichia coli [E. coli] (principal); N17.0 Acute kidney failure with tubular necrosis; D61.810 Antineoplastic chemotherapy induced pancytopenia; E87.2 Acidosis; E44.0 Moderate protein-calorie malnutrition; C85.90 Non-Hodgkin lymphoma, unspecified, unspecified site; E87.1 Hypo-osmolality and hyponatremia; B96.20 Unspecified Escherichia coli [E. coli] as the cause of diseases classified elsewhere; T45.1X5A Adverse effect of antineoplastic and immunosuppressive drugs, initial encounter; Z88.1 Allergy status to other antibiotic agents; Y92.009 Unspecified place in unspecified non-institutional (private) residence as the place of occurrence of the external cause; R50.81 Fever presenting with conditions classified elsewhere; R65.20 Severe sepsis without septic shock; K64.9 Unspecified hemorrhoids; E86.1 Hypovolemia; E87.6 Hypokalemia; E66.01 Morbid (severe) obesity due to excess calories
CPT/HCPCS: 36415; 71045-TC; 71260-TC; 78582; 80048-TC; 80061-TC; 80076-TC; 80202-TC; 81000-TC; 83605-TC; 83735-TC; 84100-TC; 84443-TC; 84484-TC; 85025-TC; 85027-TC; 85045-TC; 85730-TC; 86850-TC; 86921-TC; 87040-TC; 87081-TC; 87086-TC; 87186-TC; 93307-TC; 94799-TC; A4216; A4606; A9540; A9567; J0696; J1200; J1447; J1450; J2185; J2543; J3370; J7030; J7040; J7050; J7060; P9016-BL; P9034-BL; Q9967; Z7610